=== PATIENT | female | born 1980 | race Caucasian/White ===

== ENCOUNTER 2022-10-24 22:04 | Emergency (ER) | payer OTHER ==
[2022-10-24] MEDS ORDERED: CHERRY SYRUP 10 ML UDC PO ONE (22:44)
[2022-10-24] MEDS ORDERED: DEXAMETHASONE 10 MG/ML VIAL PO STA (22:44)
[2022-10-24] MEDS ORDERED: AMOX/CLAV 875 MG/125 MG TABLET PO STA (22:45)
--- NOTE | 2022-10-24 22:47 | ED Physician Documentation ---
PD HPI URI - Stated complaint Stated Complaint: SOA/RT SIDE PX - Chief complaint Chief Complaint: Resp - History obtained from History obtained from: Patient - History of Present Illness Timing - onset: How many days ago (6) Timing duration: Days (6) Timing details: Gradual onset, Still present Associated symptoms: Nasal congestion, Rhinorrhea, Productive cough, Chest pain, Dyspnea Improves by: Rest, Medication Worsened by: Activity Similar symptoms before: Diagnosis (URI OM with rupture) Recently seen: Not recently seen - Additional information Additional information: 42-year-old Soniya Cabrera presents to the emergency department with a cough and congestion of 6 days duration. She is coughing up some yellow phlegm she feels lightheaded and dizzy she has some muffled hearing in her right ear. She has a prior history of rupture of the TM on the right side and infections with ear nose and throat. She is feeling some shortness of breath and pain in her right chest. Review of Systems Constitutional: denies: Fever Ears: reports: Loss of hearing, Ear pain Nose: reports: Rhinorrhea / runny nose, Congestion Throat: denies: Sore throat Cardiac: reports: Chest pain / pressure. 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) Psych: Depression, Anxiety, Panic attacks - Past Surgical History Past Surgical History: Yes /CLINICAL SUPPORT NURSE: Dilation and currettage - Present Medications Home Medications: Ambulatory Orders Medication Instructions Recorded Confirmed Meclizine [Antivert] 25 mg PO Q6H PRN #20 tablet 03/14/14 Ondansetron [Zofran Odt] 8 mg PO Q6H PRN #10 tab.rapdis 03/14/14 Ibuprofen [Motrin] 800 mg PO Q8H PRN #30 tablet 05/12/14 Oxycodone HCl/Acetaminophen 1 - 2 each PO Q4HR PRN #20 tablet 05/12/14 [Percocet 5-325 mg Tablet] Amox/Clav 875/125 [Augmentin] 1 each PO Q12H #20 tablet 10/24/22 - Allergies Allergies/Adverse Reactions: Allergies Allergy/AdvReac Type Severity Reaction Status Date / Time No Known Drug Allergies Allergy Verified 10/24/22 22:22 - Social History Does the pt smoke?: No Smoking Status: Never smoker Does the pt drink ETOH?: No Does the pt have substance abuse?: No - Immunizations Immunizations are current?: Yes - POLST Patient has POLST: No PD ED PE NORMAL - Vitals Vital signs reviewed: Yes (Hypertensive mild) - General General: Alert and oriented X 3, No acute distress, Well developed/nourished - HEENT HEENT: Atraumatic, PERRL, EOMI, Pharynx benign, Dentition benign, Other (Right TM is erythematous with distortion of landmarks and significant tympanosclerosis. The left is with erythema and distortion of landmarks.) - Neck Neck: Supple, no meningeal sign, No bony TTP - Cardiac Cardiac: RRR, No murmur - Respiratory Respiratory: No respiratory distress, Clear bilaterally - Abdomen Abdomen: Soft, Non tender - Back Back: No CVA TTP, No spinal TTP - Derm Derm: Normal color, Warm and dry, No rash - Extremities Extremities: No deformity, No edema - Neuro Neuro: Alert and oriented X 3, heading saw operator 2-12 intact, No motor deficit, No sensory deficit, Normal speech Eye Opening: Spontaneous Motor: Obeys Commands Verbal: Oriented GCS Score: 15 - Psych Psych: Normal mood, Normal affect Results - Vitals Vitals: Vital Signs - 24 hr 10/24/22 10/25/22 22:20 00:15 Temperature 36.5 C Heart Rate 100 74 Respiratory 16 16 Rate Blood Pressure 133/74 H 128/84 H O2 Saturation 100 100 Oxygen O2 Source Room air - Rads (name of study) chest Relevant Findings:: Prelim report reviewed (Impression: 1. No acute cardiopulmonary disease. Findings suggestive of COPD.), EMP independent interpretation of test PD Medical Decision Making - ED course Complexity details: considered differential, d/w patient ED course: 42-year-old Soniya Cabrera presents to the emergency department not feeling well today with cough, congestion, hearing loss, dizziness and on examination she is found to have bilateral otitis. She has significant to tympanosclerosis on the right side from a prior rupture. The patient's lungs are clear on exam, chest x-ray is clear as well. The patient had right-sided pleuritic chest pain and I felt the chest x-ray was adequate to rule out pneumonia as a cause of chest pain. I did not suspect pulmonary embolism as a cause. The patient was administered a dose of dexamethasone and Augmentin here in the emergency department and we will continue the Augmentin as an outpatient. Departure - Departure Disposition: 01 Home, Self Care Clinical Impression: Otitis media Qualifiers: Otitis media type: suppurative Chronicity: acute Laterality: bilateral Recurrence: recurrent Spontaneous tympanic membrane rupture: without spontaneous rupture Qualified Code(s): H66.006 - Acute suppurative otitis media without spontaneous rupture of ear drum, recurrent, bilateral Condition: Stable Instructions: ED Otitis Media Acute Adult Follow-Up: [facility] [Provider Group] Prescriptions: Amox/Clav 875/125 [Augmentin] 1 each PO Q12H #20 tablet Comments: Soniya, today it looks like you have a middle ear infection in both ears and no evidence of pneumonia on your plain film chest x-ray. You were given a dose of dexamethasone which should help with your congestion and your breathing and we have prescribed some Augmentin. This has been E scribed to the [facility] in [place]. Discharge Date/Time: 10/25/22 00:39
--- NOTE | 2022-10-24 23:41 | XRAY Report ---
PROCEDURE: Chest 1 View X-Ray INDICATIONS: R chest pain TECHNIQUE: One view of the chest was acquired. COMPARISON: Chest x-ray 04/16/2022. FINDINGS: Surgical changes and devices: None. Lungs and pleura: No pleural effusions or pneumothorax. Lungs are clear. There is hyperinflation of the lungs with mild flattening of the hemidiaphragms suggestive of COPD. Mediastinum: Mediastinal contours appear normal. Heart size is normal. Bones and chest wall: No suspicious bony lesions. Overlying soft tissues appear unremarkable. IMPRESSION: 1. No acute cardiopulmonary disease. 2. Findings suggestive of COPD. Reviewed by: Matthew Dang MD on 10/24/2022 11:52 PM PDT Approved by: Matthew Dang MD on 10/24/2022 11:52 PM PDT Station ID: [id number]
[2022-10-25 00:16] VITALS: BP 128/84
== END 2022-10-25 00:39 | disposition home or self-care (01) ==
LOC: ED 22:04
DX: H66.006 Acute suppurative otitis media without spontaneous rupture of ear drum, recurrent, bilateral (principal)
CPT/HCPCS: 71045; 99283; A9270

== ENCOUNTER 2023-04-07 09:58 | Emergency (ER) | payer OTHER ==
--- NOTE | 2023-04-07 11:07 | XRAY Report ---
PROCEDURE: Chest 2 View X-Ray INDICATIONS: hurts to take deep breath TECHNIQUE: 2 views of the chest were acquired. COMPARISON: None. FINDINGS: Surgical changes and devices: None. Lungs and pleura: No pleural effusions or pneumothorax. Lungs are clear. Mediastinum: Mediastinal contours appear normal. Heart size is normal. Bones and chest wall: No suspicious bony lesions. Overlying soft tissues appear unremarkable. IMPRESSION: No acute cardiopulmonary process. Reviewed by: Herminio Malhotra on 04/07/2023 11:06 AM PDT Approved by: Herminio Malhotra on 04/07/2023 11:06 AM PDT Station ID: [id number]
[2023-04-07] MEDS ORDERED: NAPROXEN 250 MG TABLET PO STA (12:28)
--- NOTE | 2023-04-07 12:29 | ED Physician Documentation ---
History of Present Illness - Stated complaint Stated Complaint: UPPER ABD PX,SOA,NAUSEA - Chief complaint Chief Complaint: Resp - History obtained from History obtained from: Patient - Additonal information Additional information: 42-year-old woman, healthy with no history of health problems or surgeries presents for evaluation of right upper quadrant pain. Its been going on for approximately 3 days. It gets worse with position changes, deep breathing and about 30 minutes after eating. She is mildly short of breath with it. She saw my partner 6 months ago for a seemingly similar chief complaint, but she says this is feeling very different. Sarah has been helpful for her pain. She did travel a few weeks ago to [place] by car. Denies pedal edema or calf pain. 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) Psych: Depression, Anxiety, Panic attacks - Past Surgical History Past Surgical History: Yes /YARD SWITCHER: Dilation and currettage - Present Medications Home Medications: Ambulatory Orders Medication Instructions Recorded Confirmed Meclizine [Antivert] 25 mg PO Q6H PRN #20 tablet 03/14/14 Ondansetron [Zofran Odt] 8 mg PO Q6H PRN #10 tab.rapdis 03/14/14 Ibuprofen [Motrin] 800 mg PO Q8H PRN #30 tablet 05/12/14 Oxycodone HCl/Acetaminophen 1 - 2 each PO Q4HR PRN #20 tablet 05/12/14 [Percocet 5-325 mg Tablet] Amox/Clav 875/125 [Augmentin] 1 each PO Q12H #20 tablet 10/24/22 - Allergies Allergies/Adverse Reactions: Allergies Allergy/AdvReac Type Severity Reaction Status Date / Time No Known Drug Allergies Allergy Verified 10/24/22 22:22 - Social History Does the pt smoke?: No Smoking Status: Never smoker Does the pt drink ETOH?: No Does the pt have substance abuse?: No - Immunizations Immunizations are current?: Yes - POLST Patient has POLST: No PD ED PE NORMAL - Vitals Vital signs reviewed: Yes - General General: Alert and oriented X 3, No acute distress - Neck Neck: Supple, no meningeal sign, No bony TTP - Cardiac Cardiac: RRR, No murmur - Respiratory Respiratory: No respiratory distress, Clear bilaterally - Abdomen Abdomen: Other (Tender in the right upper quadrant without surgical signs, no shingles rash about the trunk.) - Extremities Extremities: No edema - Neuro Neuro: Alert and oriented X 3, Normal speech Results - Vitals Vitals: Vital Signs - 24 hr 04/07/23 04/07/23 10:05 15:45 Temperature 36.7 C Heart Rate 83 80 Respiratory 18 16 Rate Blood Pressure 126/75 128/78 O2 Saturation 100 98 Oxygen O2 Source Room air - Labs Labs: Laboratory Tests 04/07/23 04/07/23 04/07/23 12:38 12:38 12:38 WBC 7.0 RBC 4.81 Hgb 15.0 Hct 46.5 MCV 96.7 MCH 31.2 H MCHC 32.3 RDW 13.9 Plt Count 205 MPV 9.5 Neut # (Auto) 5.1 Lymph # (Auto) 1.2 L [place] # (Auto) 0.5 Eos # (Auto) 0.1 Baso # (Auto) 0.0 Absolute Nucleated RBC 0.00 Nucleated RBC % 0.0 D-Dimer 246.6 Sodium 137 Potassium 4.4 Chloride 105 Carbon Dioxide 27 Anion Gap 5.0 L BUN 12 Creatinine 0.7 Estimated GFR (MDRD) 93 Glucose 89 Calcium 9.7 Total Bilirubin 0.6 AST 16 ALT 6 L Alkaline Phosphatase 72 Total Protein 7.2 Albumin 4.6 Globulin 2.6 Albumin/Globulin Ratio 1.8 Lipase 13 - Rads (name of study) Single view chest x-ray and right upper quadrant ultrasound are negative Relevant Findings:: Final report received, EMP independent interpretation of test PD Medical Decision Making - ED course ED course: Thromboembolic disease is considered as she has pleuritic right-sided chest and right upper quadrant pain associated with recent travel. Technically PERC negative, but will obtain a D-dimer. Seemingly more consistent with gallbladder disease given the right upper quadrant tenderness and the association with eating. Subsequently though her CBC, D-dimer, CMP, lipase, and right upper quadrant ultrasound were negative suggesting by process of elimination probably pleurisy. Departure - Departure Disposition: 01 Home, Self Care Clinical Impression: Pleurisy Condition: Good Record reviewed to determine appropriate education?: Yes Instructions: ED Chest Pain Pleurisy Comments: Labs are unremarkable including D-dimer which rules out pulmonary embolus AKA blood clot as the cause of pain. Chest x-ray and ultrasound are negative ruling out pneumonia and gallstones as the cause of the pain so by process of elimination I suspect you have pleurisy which is a benign inflammation of the lining of the lungs. Take ibuprofen per package instructions for this. Return for new or worsening symptoms, follow-up with your primary care physician, next available appointment. Discharge Date/Time: 04/07/23 15:45
[2023-04-07 12:44] LABS: BASOPHILS % (AUTO) 0.4 %; EOSINOPHILS # (AUTO) 0.1 10^3/uL (0.0-0.7); EOSINOPHILS % (AUTO) 0.9 %; HCT - HEMATOCRIT 46.5 % (37.0-47.0); LYMPHOCYTES # (AUTO) 1.2 10^3/uL (1.5-3.5); LYMPHOCYTES % (AUTO) 17.6 %; MEAN CORPUSCULAR HEMOGLOBIN 31.2 pg (27.0-31.0); MEAN CORPUSCULAR HGB CONC 32.3 g/dL (32.0-36.0); MEAN CORPUSCULAR VOLUME 96.7 fL (81.0-99.0); MEAN PLATELET VOLUME 9.5 fL (7.9-10.8); MONOCYTES # (AUTO) 0.5 10^3/uL (0.0-1.0); MONOCYTES % (AUTO) 7.1 %; NEUTROPHILS # (AUTO) 5.1 10^3/uL (1.5-6.6); NEUTROPHILS % (AUTO) 73.1 %; PLT - PLATELET COUNT 205 10^3/uL (130-450); RED BLOOD COUNT 4.81 10^6/uL (4.20-5.40); RED CELL DISTRIBUTION WIDTH 13.9 % (12.0-15.0)
[2023-04-07 13:21] LABS: ALBUMIN 4.6 g/dL (3.2-5.5); ALBUMIN/GLOBULIN RATIO 1.8 (1.0-2.2); BILIRUBIN,TOTAL 0.6 mg/dL (0.2-1.0); CALCIUM 9.7 mg/dL (8.5-10.3); CREATININE 0.7 mg/dL (0.6-1.3); POTASSIUM 4.4 mmol/L (3.5-4.5); TOTAL PROTEIN 7.2 g/dL (6.4-8.9)
[2023-04-07 15:46] VITALS: BP 128/78; O2SAT 98
--- NOTE | 2023-04-07 16:24 | Ultrasound Report ---
PROCEDURE: Abdomen Limited INDICATIONS: ruq pain TECHNIQUE: Real-time focused scanning was performed of the abdomen, with image documentation. COMPARISONS: None. FINDINGS: Liver: Liver is normal in size and homogeneous in echotexture. Gallbladder: Unremarkable. Biliary ducts: Intrahepatic bile ducts are non-dilated. Extrahepatic bile duct caliber measures 4.3 mm. Normal is 6-7 mm or less in diameter, or 10 mm or less post-cholecystectomy. Pancreas: Visualized portions of the pancreas are sonographically normal. Right kidney: Normal in size and echotexture. Right kidney measures 11.5 cm long. No hydronephrosis or nephrolithiasis. No solid masses. No complex renal cystic lesions which require follow-up. Miscellaneous: No free abdominal fluid. A vein seen on today's exam superior to the kidney is unchan ged and appears benign. IMPRESSION: No acute ultrasound abnormality. Reviewed by: Herminio Malhotra on 04/07/2023 4:23 PM PDT Approved by: Herminio Malhotra on 04/07/2023 4:23 PM PDT Station ID: [id number]
== END 2023-04-07 15:45 | disposition home or self-care (01) ==
LOC: ED 09:58
DX: R09.1 Pleurisy (principal)
CPT/HCPCS: 36415; 71046; 76705; 80053; 83690; 85025; 85379; 99283; 99284; A9270

== ENCOUNTER 2024-02-23 14:09 | Emergency (ER) | payer OTHER ==
--- NOTE | 2024-02-23 14:37 | ED Physician Documentation ---
PD HPI FEMALE - Stated complaint Stated Complaint: - Chief complaint Chief Complaint: Abd Pain - Additional information Additional information: Generally healthy 43-year-old presenting with vaginal bleeding. Patient states that she was on her normal menstrual period for the past few days and had fairly heavy bleeding began about noon. She said she was soaked through 5 ultra tampon since that time. She says she is passing clots. Mild cramping. No lightheadedness. Has never had heavy-duty periods like this before. Does not believe she is but allows that it is a possibility. 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 - Present Medications Home Medications: Ambulatory Orders Medication Instructions Recorded Confirmed Sertraline [Zoloft] 50 mg PO DAILY 02/23/24 02/23/24 - Allergies Allergies/Adverse Reactions: Allergies Allergy/AdvReac Type Severity Reaction Status Date / Time No Known Drug Allergies Allergy Verified 02/23/24 14:23 - Social History Does the pt smoke?: No Smoking Status: Never smoker Does the pt drink ETOH?: Yes Does the pt have substance abuse?: No - Immunizations Immunizations are current?: Yes - POLST Patient has POLST: No PD ED PE NORMAL - Vitals Vital signs reviewed: Yes - General General: Alert and oriented X 3 - HEENT HEENT: Atraumatic, Pharynx benign - Neck Neck: Supple, no meningeal sign - Cardiac Cardiac: RRR, No murmur - Abdomen Abdomen: Normal bowel sounds Results - Vitals Vitals: Vital Signs - 24 hr 02/23/24 14:18 Temperature 36.9 C Heart Rate 99 Respiratory 17 Rate Blood Pressure 123/76 O2 Saturation 100 Oxygen O2 Source Room air - Labs Labs: Laboratory Tests 02/23/24 02/23/24 14:50 14:52 WBC 7.9 RBC 4.54 Hgb 13.8 Hct 43.6 MCV 96.0 MCH 30.4 MCHC 31.7 L RDW 13.6 Plt Count 195 MPV 10.1 Neut # (Auto) 5.8 Lymph # (Auto) 1.4 L [place] # (Auto) 0.6 Eos # (Auto) 0.0 Baso # (Auto) 0.1 Absolute Nucleated RBC 0.00 Nucleated RBC % 0.0 Urine HCG, Qual NEGATIVE PD Medical Decision Making - ED course Complexity details: reviewed old records, reviewed results, considered differential (Dysfunctional uterine bleeding, anemia acute blood loss, ectopic , miscarriage) ED course: Patient with a few scattered clots in her vault. Os is closed. No marked uterine enlargement. hCG negative hematocrit stable. Her pelvic ultrasound is unremarkable. Departure - Departure Disposition: 01 Home, Self Care Clinical Impression: Vaginal bleeding Condition: Good Instructions: ED Bleed Irregular Vaginal Comments: Take ibuprofen 600 mg every 6 hours this will help with the bleeding. You are red blood cell count and pelvic ultrasound are both normal. These are good things. If you continue to have irregular bleeding would follow-up with a gluing crew leader as an outpatient. Forms: PCP List
[2024-02-23 14:56] LABS: BASOPHILS # (AUTO) 0.1 10^3/uL (0.0-0.1); BASOPHILS % (AUTO) 0.8 %; EOSINOPHILS % (AUTO) 0.5 %; HCT - HEMATOCRIT 43.6 % (37.0-47.0); HGB - HEMOGLOBIN 13.8 g/dL (12.0-16.0); LYMPHOCYTES # (AUTO) 1.4 10^3/uL (1.5-3.5); MEAN CORPUSCULAR HEMOGLOBIN 30.4 pg (27.0-31.0); MEAN CORPUSCULAR HGB CONC 31.7 g/dL (32.0-36.0); MEAN PLATELET VOLUME 10.1 fL (7.9-10.8); MONOCYTES # (AUTO) 0.6 10^3/uL (0.0-1.0); MONOCYTES % (AUTO) 7.6 %; NEUTROPHILS # (AUTO) 5.8 10^3/uL (1.5-6.6); NEUTROPHILS % (AUTO) 73.6 %; PLT - PLATELET COUNT 195 10^3/uL (130-450); RED BLOOD COUNT 4.54 10^6/uL (4.20-5.40); RED CELL DISTRIBUTION WIDTH 13.6 % (12.0-15.0); WHITE BLOOD COUNT 7.9 x10^3/uL (4.8-10.8)
[2024-02-23 15:24] LABS: HCG UR QUAL NEGATIVE
[2024-02-23 16:36] VITALS: BP 124/76; O2SAT 99
--- NOTE | 2024-02-23 17:04 | Ultrasound Report ---
PROCEDURE: Pelvic Complete INDICATIONS: menorrhagia TECHNIQUE: Transabdominal ultrasound of the pelvis was obtained. COMPARISON: None. FINDINGS: Uterine size: Uterus measures 8.9 x 4.1 x 5.0 cm, and is anteverted/retroflexed Myometrium: The myometrium is heterogenous Endometrium: The endometrium measures 9.2 mm in combined thickness. Right ovary: The right ovary measures 3.4 x 2.0 x 1.7 cm. Calculated ovarian volume 6.0 cc. Left ovary: The left ovary measures 2.4 x 1.5 x 3.1 cm. Calculated ovarian volume 5.8 cc. Other: No pathologic free abdominal or pelvic fluid. IMPRESSION: Unremarkable ultrasound of the pelvis Reviewed by: Siva Cash MD on 02/23/2024 4:03 PM CARLOS Approved by: Siva Cash MD on 02/23/2024 4:03 PM CARLOS Station ID: [id number]
[2024-02-23 22:03] LABS: CHLAMYDIA TRACHOMATIS DNA NEGATIVE (NEGATIVE); NEISSERIA GONORRHOEAE DNA NEGATIVE (NEGATIVE); TRICHOMONAS VAGINALIS DNA NEGATIVE (NEGATIVE)
== END 2024-02-23 16:27 | disposition home or self-care (01) ==
LOC: ED 14:09
DX: N93.9 Abnormal uterine and vaginal bleeding, unspecified (principal)
CPT/HCPCS: 36415; 81025; 84702; 85025; 87491; 87591; 87661; 99283; 99284